=== PATIENT | male | born 1985 ===

== ENCOUNTER 2018-11-07 15:40 | Emergency (ER) | payer BC ==
[2018-11-07] MEDS ORDERED: MAGNESIUM SULFATE 1 GM/2 ML SOL IV ONE ×2 (16:16→18:40)
[2018-11-07] MEDS ORDERED: THIAMINE 100 MG/ML 100 MG/ML SOL IV ONE (16:16)
[2018-11-07] MEDS ORDERED: FOLIC ACID 1 MG TAB PO ONE (16:16)
[2018-11-07] MEDS ORDERED: SODIUM CHLORIDE 0.9% 1000ML 1,000 ML IV ONE ×2 (16:16→17:59)
[2018-11-07] MEDS: SODIUM CHLORIDE 0.9% FLUSH 10 ML SOL IV PRN (16:30)
[2018-11-07 16:44] LABS: BASOPHILS % (AUTO) 1 % (0-3); EOSINOPHILS % (AUTO) 1 % (0-9); HEMATOCRIT 53 % (39-53); HEMOGLOBIN 16.8 gm/dl (13.5-17.7); LYMPHOCYTES % (AUTO) 30.3 % (10-50); MEAN CORPUSCULAR HEMOGLOBIN 26.1 pg (27.0-32.0); MEAN CORPUSCULAR HGB CONC 31.7 gm/dl (32.0-36.0); MEAN CORPUSCULAR VOLUME 82 fL (80-100); MONOCYTES % (AUTO) 3.9 % (0-12); NEUTROPHILS % (AUTO) 63.7 % (37-80)
[2018-11-07] MEDS ORDERED: MAGNESIUM SULFATE 5 GM/10 ML SOL ONE ×2 (16:47→18:41)
[2018-11-07] MEDS ORDERED: THIAMINE 100 MG/ML 100 MG/ML SOL ONE (16:47)
[2018-11-07] MEDS ORDERED: FOLIC ACID 1 MG TAB ONE (16:47)
[2018-11-07 17:05] LABS: ALBUMIN 3.6 gm/dl (3.4-5.0); ALKALINE PHOSPHATASE 149 IU/L (46-116); ALT 27 IU/L (14-63); AST 18 IU/L (15-37); BILIRUBIN,TOTAL 0.2 mg/dl (0.2-1.0); BLOOD UREA NITROGEN 14 mg/dl (7-18); CARBON DIOXIDE 22.6 mEq/L (21-32); CHLORIDE 103 mMol/L (98-107); CREATININE 1.04 mg/dl (0.80-1.30); GLUCOSE 269 mg/dl (74-106); MAGNESIUM 1.6 mg/dl (1.8-2.4); POTASSIUM 3.7 mMol/L (3.5-5.1); SALICYLATE < 2.8 mg/dl (2.8-30.0); SODIUM 141 mMol/L (136-145); THYROID STIMULATING HORMONE 0.652 uIU/ml (0.358-3.740); TOTAL PROTEIN 7.5 gm/dl (6.4-8.2)
[2018-11-07 17:06] LABS: ACETAMINOPHEN < 2 ug/ml (10-30); ALCOHOL 0.281 gm/dl (0.000-0.08)
[2018-11-07 17:11] LABS: APPEARANCE,URINE Clear; BILIRUBIN,URINE NEGATIVE (NEGATIVE); COLOR,URINE Yellow; GLUCOSE, URINE (UA) 2+ (NEGATIVE); KETONES,URINE 2+ (NEGATIVE); LEUKOCYTE ESTERASE ,URINE TRACE (NEGATIVE); NITRATE,URINE NEGATIVE (NEGATIVE); OCCULT BLOOD,URINE TRACE LYSED (NEG-TRACE); PH,URINE 5.5; UROBILINOGEN,URINE 0.2 (0.2-1.0 EU)
[2018-11-07 17:16] LABS: AMPHETAMINES NEGATIVE (NEGATIVE); BARBITUATES NEGATIVE (NEGATIVE); BENZODIAZEPINES NEGATIVE (NEGATIVE); CANNABINOL(THC) NEGATIVE (NEGATIVE); COCAINE(COC) NEGATIVE (NEGATIVE); METHADONE NEGATIVE (NEGATIVE); METHAMPHETAMINES NEGATIVE (NEGATIVE); OPIATES(OPI) NEGATIVE (NEGATIVE); OXYCODONE(OXY) NEGATIVE (NEGATIVE); PROPOXYPHENE(PPX) NEGATIVE (NEGATIVE); TRICYCLIC ANTIDEPRESSANTS NEGATIVE (NEGATIVE)
[2018-11-07 17:21] LABS: BACTERIA NEGATIVE (< 1+); CRYSTALS NEGATIVE (0-3 AVE/HPF)
[2018-11-08 05:51] VITALS: BP 120/77; PULSE 90; RESP 16; TEMP 98.5; O2SAT 96
== END 2018-11-08 06:05 ==
LOC: ED 15:40
DX: R45.851 Suicidal ideations (principal); F10.129 Alcohol abuse with intoxication, unspecified; Y90.8 Blood alcohol level of 240 mg/100 ml or more
CPT/HCPCS: 36415; 80053; 80305; 80307; 81001; 83735; 84443; 85025; 96365; 96366; 96374; 96375; 99284; 99285; J3475; A9270-GY; J3411